=== PATIENT | female | born 1985 | race Caucasian/White ===

== ENCOUNTER 2017-03-06 17:13 | Emergency (ER) | payer BC, OTHER ==
[~2017-03-06] VITALS: Ht 162.6 cm; Wt 56.7 kg
[2017-03-06] MEDS ORDERED: TRAZ-147 PO (17:36)
[2017-03-06] MEDS ORDERED: ALPR2TAB7 PO (17:36)
[2017-03-06] MEDS ORDERED: METH500T PO (17:36)
[2017-03-06] MEDS ORDERED: GABA800T2 PO (17:36)
[2017-03-06] MEDS ORDERED: OXCA300T4 PO (17:36)
[2017-03-06] MEDS ORDERED: LEVE500T9 PO (17:36)
[2017-03-06] MEDS ORDERED: TOPI25TA8 PO (17:36)
[2017-03-06] MEDS ORDERED: HYDROMORPHONE 1 MG/1 ML DISP.SYRIN IM ONE (18:00)
[2017-03-06] MEDS ORDERED: PROMETHAZINE HCL 25 MG/1 ML VIAL IM ONE (18:00)
[2017-03-06] MEDS ORDERED: PROMETHAZINE HCL 25 MG/1 ML VIAL ONE (18:03)
[2017-03-06] MEDS ORDERED: HYDROMORPHONE 2 MG/1 ML DISP.SYRIN ONE (18:03)
--- NOTE | 2017-03-06 18:22 | NUR ---
Patient discharged to home in stable conditon. Written and verbal after care instructions given. Patient verbalizes understanding of instructions.PT WALKS IN STEADY GAIT. 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
--- NOTE | 2017-03-06 18:46 | NUR ---
AFTER D/CING THE PT, WHEN WALKING OUT WITH [facility], PT SAYS THAT HAS FPOND ANOTHER ABSCESS ON THE LOWER BACK. PT BACK TO BED, DR. REDDY NOTIFIED.
--- NOTE | 2017-03-06 19:12 | NUR ---
ASSISTED MD TO EVALUATRE THE ABSESS ON THE LOWER BACK. NO I@D REQUIRED.
--- NOTE | 2017-03-06 19:14 | NUR ---
Patient discharged to home in stable conditon. Written and verbal after care instructions given. 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
--- NOTE | 2017-03-06 19:23 | NUR ---
Patient discharged to home in stable conditon. Written and verbal after care instructions given. Patient verbalizes understanding of instructions. Pt walked out of ER unassisted with [facility] school admissions representative [email or web address].
== END 2017-03-06 19:26 | disposition home or self-care (01) ==
LOC: ER 17:17
DX: L02.413 Cutaneous abscess of right upper limb (principal); F19.10 Other psychoactive substance abuse, uncomplicated; Z88.8 Allergy status to other drugs, medicaments and biological substances
CPT/HCPCS: A4663; J1170; J2550

== ENCOUNTER 2017-03-09 15:51 | Emergency (ER) | payer OTHER ==
[~2017-03-09] VITALS: Ht 162.6 cm; Wt 59.0 kg
[~2017-03-09 15:51] MED LIST: ALPR2TAB7 PO; GABA800T2 PO; LEVE500T9 PO; METH500T PO; OXCA300T4 PO; TOPI25TA8 PO; TRAZ-147 PO
--- NOTE | 2017-03-09 15:55 | NUR ---
pt here to get packing removed from previous Abscess I&D , mid-anterior forearm. Pt also has second abscess on distal posterior forearm that is large and seems like it needs I&D itself. Pt c/o 05/15 pain, no other complaints, minimal distress noted.
[2017-03-09] MEDS ORDERED: SULF1TAB48 PO (16:10)
[2017-03-09] MEDS ORDERED: KETOROLAC TROMETHAMINE 15 MG INJ IVP ONE (16:45)
[2017-03-09] MEDS ORDERED: SODIUM BICARBONATE 4.2 % (NEUT) 5 ML VIAL TP ONE (16:45)
[2017-03-09] MEDS ORDERED: LET TOPICAL SOLUTION 8 ML UDC TOP ONE (16:45)
[2017-03-09] MEDS ORDERED: LIDOCAINE HCL 2% 20 ML VIAL TP ONE (16:45)
[2017-03-09] MEDS ORDERED: LET TOPICAL SOLUTION 8 ML UDC ONE (17:06)
[2017-03-09] MEDS ORDERED: LIDOCAINE HCL 2% 20 ML VIAL ONE (17:33)
[2017-03-09] MEDS ORDERED: KETOROLAC TROMETHAMINE 15 MG INJ ONE (17:33)
[2017-03-09] MEDS: VANCOMYCIN IV 1,000 MG in IV DEXTROSE 5% 250 ML IV ONE (17:50)
[2017-03-09] MEDS ORDERED: VANCOMYCIN IV 200 ML ONE (17:54)
[2017-03-09] MEDS ORDERED: HYDROMORPHONE 1 MG/1 ML DISP.SYRIN ONE ×2 (17:55→18:37)
[2017-03-09] MEDS ORDERED: ONDANSETRON 4 MG/2 ML VIAL ONE (17:55)
[2017-03-09] MEDS ORDERED: HYDROMORPHONE 1 MG/1 ML DISP.SYRIN IV ONE ×2 (18:15)
[2017-03-09] MEDS ORDERED: ONDANSETRON 4 MG/2 ML VIAL IV ONE (18:15)
--- NOTE | 2017-03-09 19:32 | NUR ---
IV removed intact, site okay, bandaged. Gave pt RX and d/c instructions, verbalized understanding, friend bedside as well.
== END 2017-03-09 19:35 | disposition home or self-care (01) ==
LOC: ER 15:53
DX: L02.413 Cutaneous abscess of right upper limb (principal); F19.10 Other psychoactive substance abuse, uncomplicated; Z88.8 Allergy status to other drugs, medicaments and biological substances
CPT/HCPCS: 73090; A4663; J1170; J1885; J2405; J3370; J3490

== ENCOUNTER 2017-03-10 14:31 | Emergency (ER) | payer OTHER ==
[~2017-03-10] VITALS: Ht 162.6 cm; Wt 5.9 kg
[~2017-03-10 14:31] MED LIST changes: +SULF1TAB48 PO
[2017-03-10 14:56] LABS: *BILIRUBIN,URIN NEGATIVE (NEGATIVE); *BLOOD, URINE NEGATIVE (NEGATIVE); *CLARITY,URINE CLEAR (CLEAR); *COLOR,URINE YELLOW (YELLOW); *KETONES,URINE NEGATIVE (NEGATIVE); *PROTEIN,URINE NEGATIVE (NEGATIVE); *UROBILINOGEN,URINE 0.2 E.U./dl (NORMAL); LEUKOCYTE ESTERASE ,URINE NEGATIVE (NEGATIVE); NITRITE, URINE NEGATIVE (NEGATIVE); PH,URINE 6.5 (5.0-8.0); UGLUCOSE NEGATIVE (NEGATIVE)
--- NOTE | 2017-03-10 15:08 | NUR ---
Patient is resting comfortably in bed with eyes closed, pending results and disposition.
[2017-03-10 15:11] LABS: *URINE HCG, QUAL NEGATIVE (NEGATIVE)
[2017-03-10 15:12] LABS: BASOPHILS # (AUTO) 0.1 K/uL (0.0-8.0); BASOPHILS % (AUTO) 0.7 % (0.0-2.0); EOSINOPHILS # (AUTO) 0.1 K/uL (0.0-0.7); EOSINOPHILS % (AUTO) 0.6 % (0.0-7.0); HEMATOCRIT 33.3 % (37-47); HEMOGLOBIN 11.3 G/DL (12.0-16.0); LYMPHOCYTES # (AUTO) 1.9 K/UL (0.8-4.8); LYMPHOCYTES % (AUTO) 21.7 % (20.5-51.5); MEAN CORPUSCULAR HEMOGLOBIN 29.3 UUG (27.0-31.0); MEAN CORPUSCULAR HGB CONC 34 g/dL (32.0-37.0); MEAN CORPUSCULAR VOLUME 86.6 FL (81.0-99.0); MONOCYTES # (AUTO) 0.5 K/UL (0.1-1.30); MONOCYTES % (AUTO) 5.5 % (0.0-11.0); NEUTROPHILS % (AUTO) 71.5 % (38.5-71.5); PLATELET COUNT (AUTO) 354 K/UL (150-450); RED BLOOD CELL COUNT(AUTO) 3.84 MIL/UL (4.2-5.4); WHITE BLOOD COUNT (AUTO) 8.6 K/UL (4.0-11.2)
[2017-03-10 15:16] LABS: RBC,URINE 0-3 /HPF (0-3)
[2017-03-10 15:17] LABS: BACTERIA,URINE FEW /HPF (NONE SEEN); SQUAMOUS EPITHELIAL CELL,UR FEW /HPF (NONE SEEN)
[2017-03-10 15:32] LABS: CARBON DIOXIDE 29 mmol/L (21-32); CHLORIDE 102 mmol/L (98-107); GLUCOSE 103 mg/dL (74-106); POTASSIUM 4.5 mmol/L (3.5-5.1); UREA NITROGEN, BLOOD 15 mg/dL (7-18)
[2017-03-10 15:38] LABS: ALANINE AMINOTRANSFERASE 15 U/L (14-59); ALKALINE PHOSPHATASE 74 U/L (50-136); ASPARTATE AMINOTRANSFERASE 18 U/L (15-37); BILIRUBIN,DIRECT < 0.1 mg/dL (0.0-0.2); BILIRUBIN,TOTAL 0.2 mg/dL (0.2-1.0); TOTAL PROTEIN, SERUM 6.7 g/dL (6.4-8.2)
--- NOTE | 2017-03-10 17:20 | NUR ---
"Not NPO" per MD. Regular dinner tray will be ordered from hospital kitchen.
--- NOTE | 2017-03-10 18:06 | NUR ---
Patient is seen eating dinner tray, still for disposition.
--- NOTE | 2017-03-10 19:00 | NUR ---
PT SLEEPING IN BED, AROUSABLE TO NAME, ALERT, ORIENTED , NO RESP DISTRESS NOTED OR REPORTED, PT RETURNED TO SLEEP, WILL CONTINUE TO MONITOR PT FOR SAFETY, COMFORT, AND PAIN...
--- NOTE | 2017-03-10 22:23 | NUR ---
Patient discharged to home in stable conditon. Written and verbal after care instructions given. Patient verbalizes understanding of instructions. PT WALKED OUT OF ER UNASSISTED WITH BELONGINGS AT SIDE, REP FROM [facility] CONTACTED , REP HERE TO PICK HER UP...
[2017-03-10 22:25] VITALS: BP 105/61
[2017-03-11] MEDS ORDERED: MUPI22OI TP (16:17)
== END 2017-03-10 22:26 | disposition home or self-care (01) ==
LOC: ER 14:32
DX: L02.511 Cutaneous abscess of right hand (principal); F19.10 Other psychoactive substance abuse, uncomplicated; Z88.8 Allergy status to other drugs, medicaments and biological substances
CPT/HCPCS: 36415; 84703; 85025; A4663

== ENCOUNTER 2017-03-11 15:37 | Emergency (ER) | payer OTHER ==
[~2017-03-11] VITALS: Ht 162.6 cm; Wt 59.0 kg
[2017-03-11] MEDS ORDERED: MUPI22OI TP (16:17)
--- NOTE | 2017-03-11 17:31 | NUR ---
Pt evaluated by MD. Patient discharged home in stable conditon. Written and verbal after care instructions given. Patient verbalizes understanding of instructions. [facility] facility called for a ride.
[2017-03-11 17:33] VITALS: BP 106/67
== END 2017-03-11 17:34 | disposition home or self-care (01) ==
LOC: ER 15:41
DX: R10.9 Unspecified abdominal pain (principal); F31.9 Bipolar disorder, unspecified; F19.10 Other psychoactive substance abuse, uncomplicated; Z88.8 Allergy status to other drugs, medicaments and biological substances
CPT/HCPCS: A4663

== ENCOUNTER 2017-03-16 20:50 | Emergency (ER) | payer OTHER ==
[~2017-03-16] VITALS: Ht 162.6 cm; Wt 59.0 kg
[~2017-03-16 20:50] MED LIST changes: +MUPI22OI TP; +TOPI25TA PO; -TOPI25TA8 PO
[2017-03-16] MEDS ORDERED: ONDANSETRON 4 MG/2 ML VIAL IV ONE (21:15)
[2017-03-16] MEDS ORDERED: IV NORMAL SALINE 1000 ML BAG IV ONE (21:15)
[2017-03-16] MEDS ORDERED: KETOROLAC TROMETHAMINE 15 MG INJ IV ONE (21:15)
[2017-03-16 21:34] LABS: BASOPHILS % (AUTO) 0.5 % (0.0-2.0); EOSINOPHILS # (AUTO) 0.1 K/uL (0.0-0.7); EOSINOPHILS % (AUTO) 1.2 % (0.0-7.0); HEMATOCRIT 34.3 % (37-47); HEMOGLOBIN 11.3 G/DL (12.0-16.0); LYMPHOCYTES # (AUTO) 2.6 K/UL (0.8-4.8); LYMPHOCYTES % (AUTO) 35.6 % (20.5-51.5); MEAN CORPUSCULAR HGB CONC 33 g/dL (32.0-37.0); MEAN CORPUSCULAR VOLUME 87.9 FL (81.0-99.0); MONOCYTES # (AUTO) 0.5 K/UL (0.1-1.30); MONOCYTES % (AUTO) 7.3 % (0.0-11.0); NEUTROPHILS % (AUTO) 55.4 % (38.5-71.5); PLATELET COUNT (AUTO) 297 K/UL (150-450); WHITE BLOOD COUNT (AUTO) 7.2 K/UL (4.0-11.2)
[2017-03-16] MEDS ORDERED: KETOROLAC TROMETHAMINE 30 MG INJ ONE (21:36)
[2017-03-16] MEDS ORDERED: ONDANSETRON 4 MG/2 ML VIAL ONE (21:36)
[2017-03-16 21:54] LABS: BILIRUBIN,DIRECT 0.1 mg/dL (0.0-0.2); BILIRUBIN,TOTAL 0.1 mg/dL (0.2-1.0); POTASSIUM 3.7 mmol/L (3.5-5.1); TOTAL PROTEIN, SERUM 7.3 g/dL (6.4-8.2)
[2017-03-16] MEDS ORDERED: MORPHINE SULFATE 2 MG/1 ML DISP.SYRIN IV ONE (22:00)
[2017-03-16] MEDS ORDERED: MORPHINE SULFATE 4 MG/1 ML DISP.SYRIN ONE (22:19)
[2017-03-16 22:20] LABS: *BILIRUBIN,URIN NEGATIVE (NEGATIVE); *BLOOD, URINE NEGATIVE (NEGATIVE); *CLARITY,URINE SLIGHTLY CLOUDY (CLEAR); *COLOR,URINE YELLOW (YELLOW); *KETONES,URINE NEGATIVE (NEGATIVE); *PROTEIN,URINE NEGATIVE (NEGATIVE); *UROBILINOGEN,URINE 0.2 E.U./dl (NORMAL); LEUKOCYTE ESTERASE ,URINE NEGATIVE (NEGATIVE); NITRITE, URINE NEGATIVE (NEGATIVE); PH,URINE 7.5 (5.0-8.0); UGLUCOSE NEGATIVE (NEGATIVE)
[2017-03-16 22:23] LABS: BACTERIA,URINE NONE SEEN /HPF (NONE SEEN); RBC,URINE 0-3 /HPF (0-3); SQUAMOUS EPITHELIAL CELL,UR FEW /HPF (NONE SEEN); WBC,URINE 0-3 /HPF (0-3)
[2017-03-16 22:30] LABS: *URINE HCG, QUAL NEGATIVE (NEGATIVE)
[2017-03-16] MEDS ORDERED: IOHEXOL 300MG/ML 100 ML INFUS..BTL ONE (23:39)
[2017-03-16] MEDS ORDERED: IV NORMAL SALINE 250 ML IV ONE (23:39)
[2017-03-17] MEDS ORDERED: KETOROLAC TROMETHAMINE 30 MG INJ IVP ONE
[2017-03-17] MEDS ORDERED: KETOROLAC TROMETHAMINE 30 MG INJ ONE (00:04)
--- NOTE | 2017-03-17 01:04 | NUR ---
Patient discharged to home in stable conditon. Written and verbal after care instructions given. Patient verbalizes understanding of instructions. patient left with stable gait.
[2017-03-17 01:06] VITALS: BP 111/68
== END 2017-03-17 01:07 | disposition home or self-care (01) ==
LOC: ER 20:53
DX: R10.31 Right lower quadrant pain (principal); R11.2 Nausea with vomiting, unspecified; F31.9 Bipolar disorder, unspecified; F19.10 Other psychoactive substance abuse, uncomplicated; Z88.8 Allergy status to other drugs, medicaments and biological substances
CPT/HCPCS: 36415; 76705; 76856; 83690; 84703; 85025; A4663; J1885; J2270; J2405; J7030; J7050; Q9967